=== PATIENT | male | born 1985 | race Caucasian/White ===

== ENCOUNTER 2021-07-18 21:47 | Observation (INO) ==
[2021-07-18 22:36] LABS: Basophils # 0.1 10*3/uL (0.0-0.2); Basophils % 0.5 % (0.0-0.8); Eosinophils # 0.1 10*3/uL (0.0-0.87); Eosinophils % 1.5 % (0.00-10.9); Hematocrit 43.8 VOL% (42.0-52.0); Hemoglobin 14.1 GM/DL (14.0-18.0); Immature Granulocytes % 0.3 %; Immature Granulocytes Absolute 0.03 #; Lymphocytes # 2.8 10*3/uL (1.4-4.0); Lymphocytes % 29.7 % (21.2-54.2); Mean Corpuscular HGB Conc 32.2 GM/DL (32-36); Mean Corpuscular Volume 81.9 FL (87-102); Mean Platelet Volume 9.6 FL (9.6-12.0); Monocytes # 0.7 10*3/uL (0.11-0.8); Monocytes % 7.5 % (1.7-12.7); Neutrophils % 60.5 % (38.7-73.9); Platelet Count 377 T/CUMM (130-400); Red Blood Count 5.35 MC/CUMM (3.8-5.5); White Blood Count 9.5 T/CUMM (4-12)
[2021-07-18] MEDS ORDERED: ASPIRIN 325 MG TABLET PO STA (22:46)
[2021-07-18] MEDS ORDERED: NITROGLYCERIN 2% OINT 1 INCH/GM PACK TOP STA (22:46)
[2021-07-18] MEDS ORDERED: ONDANSETRON 4 MG/2 ML VIAL IV STA (22:46)
[2021-07-18] MEDS ORDERED: MORPHINE 2 MG/1 ML SYRINGE IV STA (22:46)
[2021-07-18 22:57] LABS: Alanine Aminotransferase 34 U/L (16-61); Albumin 3.9 G/DL (3.4-5.0); Alkaline Phosphatase 42 U/L (45-117); Aspartate Amino Transferase 16 U/L (0-37); Bilirubin,Total < 0.39 MG/DL (0.20-1.00); Blood Urea Nitrogen 14 MG/DL (7-18); Calcium 9.1 MG/DL (8.5-10.1); Carbon Dioxide 28 MMOL/L (21-32); Chloride 106 MMOL/L (98-107); Glucose 120 MG/DL (74-106); Osmolality,Calculated 280.4 MOS/KG (273-304); Potassium 3.9 MMOL/L (3.5-5.1); Sodium 140 MMOL/L (136-145); Total Protein 7.4 G/DL (6.4-8.2)
[2021-07-18] MEDS ORDERED: ENOXAPARIN 100 MG/ML SYRINGE SUBCUT STA (23:38)
[2021-07-18] MEDS ORDERED: ENOXAPARIN 120 MG/0.8 ML SYRINGE SUBCUT STA (23:44)
[2021-07-19] MEDS ORDERED: MORPHINE 2 MG/1 ML SYRINGE IV PRN (00:39)
[2021-07-19] MEDS ORDERED: ONDANSETRON 4 MG/2 ML VIAL IV PRN (00:39)
[2021-07-19] MEDS ORDERED: GLUCAGON 1 MG VIAL IM PRN (00:39)
[2021-07-19] MEDS ORDERED: POTASSIUM CHLORIDE 20 MEQ TABLET PO PRN (00:39)
[2021-07-19] MEDS ORDERED: POTASSIUM CHLORIDE RIDER 10 MEQ/100 ML PREMIX IV PRN (00:39)
[2021-07-19] MEDS ORDERED: MAGNESIUM SULF RIDER 2 GM/50 ML PREMIX IV PRN (00:39)
[2021-07-19] MEDS ORDERED: MAGNESIUM SULF RIDER 4 GM/100 ML PREMIX IV PRN (00:39)
[2021-07-19] MEDS ORDERED: DEXTROSE 10% 250 ML BAG IV PRN (00:52)
[2021-07-19 05:30] LABS: INR 1.1; PT Patient Result 11.7 SECS (10.5-12.0); Partial Thromboplastin Time 32.8 SECS (23.8-32.1)
[2021-07-19 06:15] LABS: High Sensitive Troponin I* < 3.0 ng/L (0-78)
[2021-07-19 06:20] LABS: Risk Ratio 7.5; VLDL Cholesterol 47.4 MG/DL
[2021-07-19] MEDS ORDERED: ASPIRIN EC 325 MG TABLET PO SCH (09:00)
[2021-07-19] MEDS ORDERED: lisinopriL 2.5 MG TABLET PO SCH (09:00)
[2021-07-19] MEDS ORDERED: carvediloL 3.125 MG TABLET PO SCH (09:00)
[2021-07-19] MEDS ORDERED: PANTOPRAZOLE 40 MG TABLET PO SCH (09:00)
[2021-07-19] MEDS ORDERED: ENOXAPARIN 150 MG/ML SYRINGE SUBCUT SCH (13:00)
[2021-07-19 15:09] VITALS: BP 135/82
[2021-07-19] MEDS ORDERED: ATORVASTATIN 40 MG TABLET PO SCH (21:00)
[2021-07-19] MEDS ORDERED: VALSARTAN 80 MG TABLET PO SCH (21:00)
== END 2021-07-19 15:30 | disposition home or self-care (01) ==
LOC: N.EDINP 21:47 → N.ED 21:47 → N.TELEN 07-19 03:15
PROVIDERS: ADMIT Internal Medicine; ATTEND Internal Medicine